=== PATIENT | male | born 2000 ===

== ENCOUNTER 2024-07-29 18:40 | Outpatient (CLI) | payer OTHER ==
[~2024-07-29 18:40] MED LIST: OLAN7.5T22 PO
[2024-07-29 20:09] VITALS: BP 126/78; PULSE 76; RESP 16; TEMP 98.1; O2SAT 99
== END 2024-07-29 23:15 | disposition left against medical advice (07) ==
LOC: CSU 18:40
PROVIDERS: ATTEND Student in an Organized Health Care Education/Training Program
DX: F43.20 Adjustment disorder, unspecified (principal)
CPT/HCPCS: 90839; 90840

== ENCOUNTER 2024-08-03 12:55 | Inpatient (IN) | payer OTHER ==
[~2024-08-03] VITALS: Ht 170.2 cm; Wt 54.5 kg
[2024-08-03 13:45] LABS: COVID AG,FIA SOURCE NASAL SWAB
[2024-08-03 13:46] LABS: BASOPHILS % (AUTO) 0.6 % (0.0-2.0); EOSINOPHILS % (AUTO) 0.3 % (1.0-6.0); HEMATOCRIT 44.6 % (41-53); LYMPHOCYTES # (AUTO) 2.2 K/uL (1.0-4.8); LYMPHOCYTES % (AUTO) 22.3 % (22.0-44.0); MEAN CORPUSCULAR HEMOGLOBIN 32.9 pg (26.0-34.0); MEAN CORPUSCULAR HGB CONC 33.6 G/dL (31.0-37.0); MEAN CORPUSCULAR VOLUME 98 fL (80-100); MONOCYTES # (AUTO) 0.7 K/uL (0.1-1.0); MONOCYTES % (AUTO) 7.4 % (2.0-9.0); NEUTROPHILS # (AUTO) 6.8 K/uL (1.8-7.7); NEUTROPHILS % (AUTO) 69.4 % (40.0-70.0); PLATELET COUNT (AUTO) 413 K/uL (150-450); RED BLOOD CELL COUNT(AUTO) 4.56 MIL/uL (4.50-5.90); RED CELL DISTRIBUTION WIDTH 13.2 % (11.5-14.5); WHITE BLOOD COUNT (AUTO) 9.8 K/uL (4.5-11.0)
[2024-08-03 13:50] LABS: ANION GAP 16 mmol/L (8-16); CALCIUM, TOTAL 9.6 mg/dL (8.8-10.5); CARBON DIOXIDE 23 mmol/L (22-29); CHLORIDE 102 mmol/L (98-107); GLOMERULAR FILTR. RATE CALC > 60 mL/min (>60); GLUCOSE,RANDOM 99 mg/dL (70-110); POTASSIUM 3.8 mmol/L (3.5-5.1); SODIUM SERUM 141 mmol/L (136-145); UREA NITROGEN, BLOOD 22 mg/dL (7-18)
[2024-08-03 14:14] LABS: ALCOHOL, BLOOD (SERUM) < 3 mg/dL (0-10); SARS-COV2 (COVID) ANTIGEN,FIA Negative (Negative)
[2024-08-03] MEDS ORDERED: ACETAMINOPHEN 325 MG TABLET PO PRN (17:45)
[2024-08-03] MEDS ORDERED: LOPERAMIDE HCL 2 MG CAPSULE PO PRN (17:45)
[2024-08-03] MEDS ORDERED: MAGNESIUM HYDROXIDE SUSPENSION 30 ML UDCUP PO PRN (17:45)
[2024-08-03] MEDS ORDERED: MAG HYDROX/ALUMINUM HYD/SIMETH ES 30 ML SUSPENSION UDCUP PO PRN (17:45)
[2024-08-03] MEDS: ZOLPIDEM TARTRATE 10 MG TABLET PO PRN (20:38)
[2024-08-03] MEDS: HALOPERIDOL 5 MG TABLET PO PRN (20:39)
[2024-08-03] MEDS: LORazepam 2 MG TABLET PO PRN (20:39)
[2024-08-03 21:56] VITALS: O2SAT 98
[2024-08-03] MEDS: LORazepam 2 MG/ML VIAL IM ONE (23:15)
[2024-08-03] MEDS: DiphenhydrAMINE HCL 50 MG/ML VIAL IM ONE (23:16)
[2024-08-03] MEDS: HALOPERIDOL LACTATE 5 MG/ML VIAL IM ONE (23:17)
[2024-08-04 08:21] VITALS: BP 100/79; PULSE 106; RESP 18; TEMP 97.5; O2SAT 97
[2024-08-04] MEDS ORDERED: ALBUTEROL SULFATE HFA 90 MCG/PUFF 8 GM INHALER IH PRN (09:30)
[2024-08-04] MEDS ORDERED: LOPERAMIDE HCL 2 MG CAPSULE PO PRN (09:30)
[2024-08-04] MEDS ORDERED: DOCUSATE SODIUM 100 MG CAPSULE PO PRN (09:30)
[2024-08-04] MEDS ORDERED: ACETAMINOPHEN 325 MG TABLET PO PRN (09:30)
[2024-08-04] MEDS ORDERED: GuaiFENesin/D-METHORPHAN [SUGAR-FREE] 200-20MG/10 ML SYRUP UDCUP PO PRN (09:30)
[2024-08-04] MEDS ORDERED: MAGNESIUM HYDROXIDE SUSPENSION 30 ML UDCUP PO PRN (09:30)
[2024-08-04] MEDS ORDERED: NICOTINE 14 MG/24 HOUR PATCH TD PRN (09:30)
[2024-08-04] MEDS ORDERED: CloNIDine HCL 0.1 MG TABLET PO PRN (09:30)
[2024-08-04] MEDS ORDERED: ONDANSETRON 4 MG TABLET PO PRN (09:30)
[2024-08-04] MEDS ORDERED: MAG HYDROX/ALUMINUM HYD/SIMETH ES 30 ML SUSPENSION UDCUP PO PRN (09:30)
[2024-08-04] MEDS ORDERED: IBUPROFEN 400 MG TABLET PO PRN (09:30)
[2024-08-04] MEDS ORDERED: PETROLATUM,WHITE 28 GM JELLY TP PRN (09:30)
[2024-08-04] MEDS: RisperiDONE 1 MG TABLET PO SCH (09:40)
[2024-08-04] MEDS: DIVALPROEX SODIUM 500 MG DR TABLET PO SCH (09:41)
[2024-08-05 02:59] VITALS: BP 100/79; PULSE 106; RESP 18; TEMP 97.5; O2SAT 98
[2024-08-05 11:11] VITALS: BP 118/78; PULSE 100; RESP 17; TEMP 97.9; O2SAT 100
[2024-08-05 20:25] VITALS: BP 127/66; PULSE 92; RESP 18; TEMP 97.7; O2SAT 100
[2024-08-06 08:34] VITALS: BP 135/73; PULSE 100; RESP 16; TEMP 97.5; O2SAT 99
[2024-08-06] MEDS ORDERED: RISP-31 PO (11:38)
[2024-08-06] MEDS ORDERED: DIVA-112 PO (11:39)
== END 2024-08-06 13:00 | disposition home or self-care (01) | DRG 885 ==
LOC: EMS 12:55 → B3A 22:27
PROVIDERS: ADMIT Psychiatry & Neurology Psychiatry; ATTEND Psychiatry & Neurology Psychiatry
PROC: GZHZZZZ Group Psychotherapy (ICD-10-PCS; principal; 2024-08-04)
PROC: GZ51ZZZ Individual Psychotherapy, Behavioral (ICD-10-PCS; 2024-08-04)
DX: F25.0 Schizoaffective disorder, bipolar type (principal); E44.0 Moderate protein-calorie malnutrition; Z68.1 Body mass index [BMI] 19.9 or less, adult; Z20.822 Contact with and (suspected) exposure to COVID-19; F19.10 Other psychoactive substance abuse, uncomplicated; R79.89 Other specified abnormal findings of blood chemistry; Z79.899 Other long term (current) drug therapy; Z91.148 Patient's other noncompliance with medication regimen for other reason
CPT/HCPCS: 80048; 85025; 99285; G0480

== ENCOUNTER 2024-09-20 13:54 | Inpatient (IN) | payer BC ==
[~2024-09-20] VITALS: Ht 180.3 cm; Wt 58.2 kg
[~2024-09-20 13:54] MED LIST changes: +DIVA-112 PO; -OLAN7.5T22 PO; +RISP-31 PO
[2024-09-20] MEDS ORDERED: ZOLPIDEM TARTRATE 10 MG TABLET PO PRN (14:15)
[2024-09-21 07:48] LABS: COVID AG,FIA SOURCE NASAL SWAB
[2024-09-21 08:15] LABS: SARS-COV2 (COVID) ANTIGEN,FIA Negative (Negative)
[2024-09-21 18:45] VITALS: O2SAT 100
[2024-09-22 02:31] VITALS: BP 124/75; PULSE 66; RESP 18; TEMP 96.6; O2SAT 99
[2024-09-22] MEDS ORDERED: INFLUENZA VIRUS VACCINE TVS (6MO+) 2024-25/PF 45 MCG/0.5 ML SYRINGE IM. ONE (06:15)
[2024-09-22 09:52] VITALS: BP 125/71; PULSE 74; RESP 18; TEMP 97.5; O2SAT 98
[2024-09-22] MEDS ORDERED: DOCUSATE SODIUM 100 MG CAPSULE PO PRN (10:30)
[2024-09-22] MEDS ORDERED: IBUPROFEN 400 MG TABLET PO PRN (10:30)
[2024-09-22] MEDS ORDERED: ACETAMINOPHEN 325 MG TABLET PO PRN (10:30)
[2024-09-22] MEDS ORDERED: LOPERAMIDE HCL 2 MG CAPSULE PO PRN (10:30)
[2024-09-22] MEDS ORDERED: CloNIDine HCL 0.1 MG TABLET PO PRN (10:30)
[2024-09-22] MEDS ORDERED: MAGNESIUM HYDROXIDE SUSPENSION 30 ML UDCUP PO PRN (10:30)
[2024-09-22] MEDS ORDERED: GuaiFENesin/D-METHORPHAN [SUGAR-FREE] 200-20MG/10 ML SYRUP UDCUP PO PRN (10:30)
[2024-09-22] MEDS ORDERED: MAG HYDROX/ALUMINUM HYD/SIMETH ES 30 ML SUSPENSION UDCUP PO PRN (10:30)
[2024-09-22] MEDS ORDERED: ALBUTEROL SULFATE HFA 90 MCG/PUFF 8 GM INHALER IH PRN (10:30)
[2024-09-22] MEDS ORDERED: NICOTINE 14 MG/24 HOUR PATCH TD PRN (10:30)
[2024-09-22] MEDS ORDERED: ONDANSETRON 4 MG TABLET PO PRN (10:30)
[2024-09-22] MEDS ORDERED: PETROLATUM,WHITE 28 GM JELLY TP PRN (10:30)
[2024-09-22] MEDS: LORazepam 2 MG TABLET PO PRN (10:52)
[2024-09-22] MEDS: HALOPERIDOL 5 MG TABLET PO PRN (10:52)
[2024-09-22] MEDS: RisperiDONE 1 MG TABLET PO SCH (13:39)
[2024-09-22] MEDS: DIVALPROEX SODIUM 500 MG DR TABLET PO SCH (13:39)
[2024-09-22 20:33] VITALS: BP 100/70; PULSE 74; RESP 18; TEMP 97.9; O2SAT 97
[2024-09-23] MEDS: RisperiDONE 2 MG TABLET PO SCH (21:00)
[2024-09-23 21:16] VITALS: RESP 18
[2024-09-24 08:44] VITALS: BP 125/79; PULSE 86; RESP 18; TEMP 98.2; O2SAT 96
[2024-09-24 22:09] VITALS: RESP 18
[2024-09-25 09:10] VITALS: BP 116/76; PULSE 79; RESP 18; TEMP 98.1; O2SAT 98
[2024-09-25 09:57] LABS: HEMOGLOBIN A1C 5.4 % (3.8-5.6)
[2024-09-25 10:07] LABS: THYROID STIMULATING HORMONE 2.04 uIU/mL (0.36-3.74)
[2024-09-25 20:36] VITALS: RESP 17
[2024-09-26] MEDS: DiphenhydrAMINE HCL 50 MG/ML VIAL IM ONE (03:48)
[2024-09-26] MEDS: HALOPERIDOL LACTATE 5 MG/ML VIAL IM ONE (03:52)
[2024-09-26] MEDS: LORazepam 2 MG/ML VIAL IM ONE (03:53)
[2024-09-26 23:25] VITALS: RESP 18
[2024-09-27 09:23] VITALS: RESP 19; TEMP 96.8
[2024-09-27 20:28] VITALS: RESP 18
[2024-09-28 08:30] VITALS: BP 117/71; PULSE 75; RESP 18; TEMP 97.6; O2SAT 100
[2024-09-28 20:31] VITALS: BP 97/61; PULSE 80; RESP 18; TEMP 97.1; O2SAT 95
[2024-09-29 13:33] VITALS: BP 145/109; PULSE 82; RESP 18; TEMP 98.5; O2SAT 98
[2024-09-29 20:51] VITALS: BP 120/58; PULSE 78; RESP 18; TEMP 97.1; O2SAT 95
[2024-09-30 09:26] VITALS: BP 118/78; PULSE 99; RESP 18; TEMP 98.3; O2SAT 98
[2024-09-30 20:02] VITALS: RESP 17; TEMP 97.9
[2024-10-01 10:35] VITALS: BP 117/76; PULSE 100; RESP 16; TEMP 98; O2SAT 97
[2024-10-01] MEDS: PALIPERIDONE PALMITATE 234 MG/1.5 ML SYRINGE IM ONE (17:27)
[2024-10-01 23:04] VITALS: BP 110/70; PULSE 78; RESP 16; TEMP 97.6; O2SAT 97
[2024-10-02 08:42] VITALS: BP 133/80; PULSE 100; RESP 16; TEMP 98.2; O2SAT 100
[2024-10-02] MEDS ORDERED: PALI234D IM (11:41)
[2024-10-02] MEDS ORDERED: DIVA-112 PO (12:52)
[2024-10-02] MEDS ORDERED: RISP-32 PO (12:52)
== END 2024-10-02 14:47 | disposition home or self-care (01) | DRG 885 ==
LOC: EMS 13:55 → 3EC 09-21 23:56
PROVIDERS: ADMIT Psychiatry & Neurology Child & Adolescent Psychiatry; ATTEND Psychiatry & Neurology Child & Adolescent Psychiatry
PROC: GZHZZZZ Group Psychotherapy (ICD-10-PCS; principal; 2024-09-22)
PROC: GZ51ZZZ Individual Psychotherapy, Behavioral (ICD-10-PCS; 2024-09-22)
DX: F25.0 Schizoaffective disorder, bipolar type (principal); E44.0 Moderate protein-calorie malnutrition; Z68.1 Body mass index [BMI] 19.9 or less, adult; Z20.822 Contact with and (suspected) exposure to COVID-19; G47.00 Insomnia, unspecified; I10 Essential (primary) hypertension; F41.9 Anxiety disorder, unspecified; F17.200 Nicotine dependence, unspecified, uncomplicated
CPT/HCPCS: 80164; 83036; 84443; 99285; J1200; J1630; J2060

== ENCOUNTER 2025-01-08 18:58 | Emergency (ER) | payer BC, OTHER ==
[~2025-01-08] VITALS: Ht 177.8 cm; Wt 61.4 kg
[~2025-01-08 18:58] MED LIST changes: +PALI234D IM; +RISP-32 PO
[2025-01-08 19:15] VITALS: BP 112/65; PULSE 78; RESP 17; TEMP 98.6; O2SAT 98
[2025-01-08 19:30] LABS: BASOPHILS % (AUTO) 0.9 % (0.0-2.0); EOSINOPHILS % (AUTO) 2.4 % (1.0-6.0); HEMATOCRIT 43.9 % (41-53); HEMOGLOBIN 14.7 g/dL (13.5-17.5); LYMPHOCYTES # (AUTO) 2.6 K/uL (1.0-4.8); LYMPHOCYTES % (AUTO) 38.8 % (22.0-44.0); MEAN CORPUSCULAR HEMOGLOBIN 33.5 pg (26.0-34.0); MEAN CORPUSCULAR HGB CONC 33.6 G/dL (31.0-37.0); MEAN CORPUSCULAR VOLUME 100 fL (80-100); MONOCYTES # (AUTO) 0.5 K/uL (0.1-1.0); MONOCYTES % (AUTO) 8.2 % (2.0-9.0); NEUTROPHILS # (AUTO) 3.3 K/uL (1.8-7.7); NEUTROPHILS % (AUTO) 49.7 % (40.0-70.0); PLATELET COUNT (AUTO) 291 K/uL (150-450); RED BLOOD CELL COUNT(AUTO) 4.41 MIL/uL (4.50-5.90); RED CELL DISTRIBUTION WIDTH 12.9 % (11.5-14.5); WHITE BLOOD COUNT (AUTO) 6.7 K/uL (4.5-11.0)
[2025-01-08 19:39] LABS: ANION GAP 6 mmol/L (8-16); CALCIUM, TOTAL 8.5 mg/dL (8.8-10.5); CARBON DIOXIDE 31 mmol/L (22-29); CHLORIDE 105 mmol/L (98-107); CREATININE 1.18 mg/dL (0.60-1.30); GLOMERULAR FILTR. RATE CALC > 60 mL/min (>60); GLUCOSE,RANDOM 95 mg/dL (70-110); POTASSIUM 4.8 mmol/L (3.5-5.1); SODIUM SERUM 142 mmol/L (136-145); UREA NITROGEN, BLOOD 24 mg/dL (7-18)
[2025-01-08 19:48] LABS: ALCOHOL, BLOOD (SERUM) < 3 mg/dL (0-10)
== END 2025-01-08 21:43 | disposition left against medical advice (07) ==
LOC: EMS 18:58
DX: R45.6 Violent behavior (principal); R44.0 Auditory hallucinations; Z53.21 Procedure and treatment not carried out due to patient leaving prior to being seen by health care provider
CPT/HCPCS: 36415; 80048; 85025; G0480